=== PATIENT | male | born 1990 | race Caucasian/White ===

== ENCOUNTER 2022-03-09 16:22 | Emergency (ER) | payer SELFPAY ==
--- NOTE | 2022-03-09 16:15 | RT.EKG_ITS ---
APPROVED REPORT Exam: Resting ECG Reason for Exam: Chest pain Patient Location: E HR:59 bpm ECG Measurements Heart Rate 59 AXIS NV 133 P 45 QRSd 99 QRS 20 QT 392 T 43 QTc 387 Conclusion Sinus bradycardia...rate< 60 ST elev, probable normal early repol pattern...ST elevation, age<55. Sinus. Normal axis. Peaked T waves. Benign early repolarization. No STEMI. I have reviewed and interpreted ECG and agree with software generated interpretation.
[2022-03-09 16:27] VITALS: BP 137/67; PULSE 65; RESP 14; TEMP 36.8; O2SAT 97
--- NOTE | 2022-03-09 17:45 | DI.RAD_ITS ---
Exam(s) XR PORTABLE CHEST AP EXAM: XR PORTABLE CHEST AP CLINICAL HISTORY: chest pain TECHNIQUE: COMPARISON: No exams were available for comparison FINDINGS: PA view of the chest was obtained. Heart is not enlarged. Lungs are clear and well expanded. No pl eural effusion seen on this frontal film. IMPRESSION: Negative examination of the chest. RADIATION DOSE DELIVERED: Total DLP
[2022-03-09] MEDS: Ibuprofen 600 MG TAB PO (18:16)
[2022-03-09 18:21] LABS: ESR 8 mm/hr (0-15)
[2022-03-09 18:23] LABS: Abs Immature Grans 0.01 10^3/uL (0.0-0.06); Absolute Basophil Count 0.03 10^3/uL (0.0-0.2); Absolute Eosinophil Count 0.09 10^3/uL (0.0-0.7); Absolute Lymphocyte Count 1.58 10^3/uL (1.2-3.4); Absolute Monocyte Count 0.85 10^3/uL (0.1-0.8); Absolute Neutrophil Count 4.08 10^3/uL (1.2-6.7); Basophils % 0.5; Eosinophils % 1.4; HCT 44.3 % (40.0-50.0); HGB 14.6 g/dL (13.5-17.5); Immature Grans % 0.2; Lymphocytes % 23.8; MCH 27.8 pg (27.0-33.0); MCV 84 fL (80-95); MPV 12.9 fL (8.0-11.0); Monocytes % 12.8; Neutrophils % 61.3; Platelet Count 170 10^3/uL (130-400); RBC 5.25 10^6/uL (4.36-5.78); RDW 12.6 % (11.8-14.1); RDW-SD 38.8 fL; WBC 6.64 10^3/uL (4.4-10.8)
[2022-03-09 18:25] LABS: ALT 16 U/L (16-63); AST 19 U/L (15-37); Albumin 4.2 g/dL (3.4-5.0); Alkaline Phosphatase 83 U/L (46-116); Anion Gap 6.5 mmol/L (3-11); BUN 13 mg/dL (7-18); Bilirubin, Total 0.3 mg/dL (0.2-1.0); CO2 29.5 mmol/L (21.0-32.0); Chloride 104 mmol/L (98-107); Estimated GFR 103.84 (mL/min/1.73m2); Glucose 94 mg/dL (74-106); Lipase 93 U/L (73-393); Potassium 4.7 mmol/L (3.5-5.1); Sodium 140 mmol/L (136-145); Total Protein 8.4 g/dL (6.4-8.2)
--- NOTE | 2022-03-09 18:59 | DI.VRAD_ITS ---
PROCEDURE INFORMATION: Exam: XR Chest Exam date and time: 03/09/2022 6:36 PM Age: 31 years old Clinical indication: Pain; Chest pressure; Additional info: Chest pain TECHNIQUE: Imaging protocol: Radiologic exam of the chest. Views: 1 view. COMPARISON: No relevant prior studies available. FINDINGS: Lungs: Unremarkable. No consolidation. Pleural spaces: Unremarkable. No pleural effusion. No pneumothorax. Heart/Mediastinum: Unremarkable. No cardiomegaly. Bones/joints: Unremarkable. IMPRESSION: No acute findings. Dictated and Authenticated by: Francisco Funes MD. Ordering:FERCHO Valenzuela MD
--- NOTE | 2022-03-09 19:31 | ED.GENADUL_ITS ---
Discharge Plan Disposition Patient Disposition: HOME Condition: Stable Discharge Details Clinical Impression: Chest pain Primary Care Provider: AllisonLocal ED Provider: Bianca Guo Home Meds and New Rx's Prescriptions: New cyclobenzaprine 10 mg tablet 10 mg PO TID Qty: 10 0RF Discharge Instructions Instructions: Chest Pain (ED), Pleurisy (DC) Additional Instructions: take motrin/tylenol as needed for pain flexeril with pain uncontrolled with motrin/tylenol rest recheck in 24-48 hours with persistent pain take ibuprofen every 8 hours for the next 5 days Stand Alone Forms: Work Release Discharge Data Discharge Date/Time-TO BE ENTERED AT DEPARTURE: 03/09/22 19:45 Medical Decision Making Patient appears well He is PERC negative He has a negative troponin with greater than 24 hours of symptoms and other patient negative EKG for acute abnormality and reproducible chest pain without abnormality on chest x-ray Patient is stable for discharge home at this time, I suspect he has pleurisy and this is atypical chest pain My suspicion for coronary artery disease is low given age and lack of comorbidities Will need close outpatient recheck Return precautions discussed and patient expressed understanding Medical Records Medical records reviewed: Yes I reviewed the patient's medical records. Lab Data Lab results reviewed: Yes I reviewed the patient's lab results. HPI General Date/Time Provider Initiated Documentation: 03/09/22 16:31 . HPI Narrative: This 31-year-old male presents for chest pain that started yesterday at work. He states the pain is exacerbated with movement and position change. He denies any fever or chills. He denies any myalgias. He denies any calf pain or swelling. He denies history of coagulopathy or pulmonary. He denies history of similar symptoms in the past. He denies any tobacco abuse or early family history of coronary artery disease. Denies history of cocaine or illicit drug use. Related Data Home Medications Medication Instructions Recorded Confirmed cyclobenzaprine 10 mg tablet 10 mg PO TID #10 tabs 03/09/22 Previous Rx's Medication Instructions Recorded cyclobenzaprine 10 mg tablet 10 mg PO TID #10 tabs 03/09/22 Allergies Allergy/AdvReac Type Severity Reaction Status Date / Time No Known Allergies Allergy Unverified 03/09/22 16:31 General Stated Complaint: Chest Pain ALYSA: 3 Review of Systems All systems reviewed & are unremarkable except as noted in HPI and below PFSH All Active Problems (Updated 03/09/22 @ 19:39 by MARIELENA Randolph) Chest pain (Acute) Social History Smoking/Tobacco Use Status: Current every day Tobacco Type: cigarettes Smoking risk assessment performed?: Yes Alcohol Intake: never Drug use: Socially Substance use type: marijuana Do you feel safe at home: Yes Do you feel safe in your relationship?: Yes Exam Const General: cooperative, comfortable and no acute distress Orientation: alert and oriented x3 Eyes Sclera: sclerae normal Chest Other: Reproducible tenderness to chest Resp Effort & Inspection: normal respiratory effort Auscultation: clear to auscultation bilaterally Cardio Rate: regular rate Rhythm: regular rhythm Skin General skin exam: no rashes or lesions noted Neuro General: patient alert and patient oriented x3 Extrem Other: distal pulses intact No calf swelling or tenderness Course Vital Signs Vital signs: Vital Signs Temperature 36.8 C 03/09/22 16:27 Pulse 65 03/09/22 16:27 Respiratory Rate 14 03/09/22 16:27 Blood Pressure 137/67 03/09/22 16:27 Pulse Oximetry 97 03/09/22 16:27 Temperature 36.8 C 03/09/22 16:27 Temperature Source Skin 03/09/22 16:27 Pulse 65 03/09/22 16:27 Respiratory Rate 14 03/09/22 16:27 Respiratory Effort 03/09/22 16:32 Blood Pressure 137/67 03/09/22 16:27 Blood Pressure Position Sitting 03/09/22 16:27 Pulse Oximetry 97 03/09/22 16:27 Oxygen Delivery Method Room Air 03/09/22 16:27 Oxygen Flow Rate 0 03/09/22 16:27 Pain Level 8 03/09/22 16:27 Lab/Test Results Lab/Test Results: Laboratory Tests Range/Units 03/09/22 03/09/22 03/09/22 18:03 18:03 18:03 WBC (4.4-10.8) 10^3/uL 6.64 RBC (4.36-5.78) 10^6/uL 5.25 Hgb (13.5-17.5) g/dL 14.6 Hct (40.0-50.0) % 44.3 MCV (80-95) fL 84 MCH (27.0-33.0) pg 27.8 MCHC (32.0-36.0) % 33.0 RDW (11.8-14.1) % 12.6 Plt Count (130-400) 10^3/uL 170 MPV (8.0-11.0) fL 12.9 H Immature Gran % 0.2 Neutrophils % 61.3 Lymphocytes % 23.8 Monocytes % 12.8 Eosinophils % 1.4 Basophils % 0.5 Nucleated RBC % (0.0-0.3) % 0.0 Absolute Neutrophils (1.2-6.7) 10^3/uL 4.08 Absolute Lymphocytes (1.2-3.4) 10^3/uL 1.58 Absolute Monocytes (0.1-0.8) 10^3/uL 0.85 H Absolute Eosinophils (0.0-0.7) 10^3/uL 0.09 Absolute Basophils (0.0-0.2) 10^3/uL 0.03 ESR (0-15) mm/hr 8 Sodium (136-145) mmol/L 140 Potassium (3.5-5.1) mmol/L 4.7 Chloride (98-107) mmol/L 104 Carbon Dioxide (21.0-32.0) mmol/L 29.5 Anion Gap (3-11) mmol/L 6.5 BUN (7-18) mg/dL 13 Creatinine (0.70-1.30) mg/dL 1.0 Est GFR (CKD-EPI 2020) (mL/min/1.73m2) 103.84 Glucose (74-106) mg/dL 94 Calcium (8.5-10.1) mg/dL 9.0 Total Bilirubin (0.2-1.0) mg/dL 0.3 AST (15-37) U/L 19 ALT (16-63) U/L 16 Alkaline Phosphatase (46-116) U/L 83 Total Protein (6.4-8.2) g/dL 8.4 H Albumin (3.4-5.0) g/dL 4.2 Lipase (73-393) U/L 93
== END 2022-03-09 19:45 | disposition home or self-care (01) ==
PROVIDERS: Emergency Provider Physician Assistant
DX: R07.89 Other chest pain (principal); F17.210 Nicotine dependence, cigarettes, uncomplicated
CPT/HCPCS: 36415; 80053; 83690; 85652; 93005; 99283; 71045; 85025; 93010; 99284

== ENCOUNTER 2022-06-15 08:34 | Emergency (ER) | payer SELFPAY ==
[2022-06-15 08:40] VITALS: BP 110/73; PULSE 78; RESP 14; TEMP 37.3; O2SAT 97
--- NOTE | 2022-06-15 10:28 | ED.GENADUL_ITS ---
Discharge Plan Disposition Patient Disposition: Home Condition: Stable Discharge Details Chief Complaint: Nk/Back Pain Clinical Impression: Back pain Primary Care Provider: Allison,Local ED Provider: Colby cD Home Meds and New Rx's Prescriptions: No Action No Known Home Meds Discharge Instructions Instructions: Back Pain (ED) Additional Instructions: A single dose of IM Toradol provided here in the ER. Rest, gentle stretching as tolerated. Cool and/or warm compresses every 2 hours for 20 minutes. Svor-cuq-oavuvnd medications as directed for symptomatic control. Please watch for new or worsening symptoms and return to the ER for any concerns. Work note provided for today and tomorrow. Stand Alone Forms: Work Release Medical Decision Making This is a 32-year-old male who denies significant past medical history reports left lower back pain that began yesterday while mopping at work. Denies any history of IV drug use. Denies fever, midline point tenderness, incontinence. Clinically he appears well, nontoxic. Neuro, vascular, tendon intact. This appears to be musculoskeletal in nature. X-ray likely little value. Plan to provide IM Toradol and a work note for today and tomorrow. Standard discharge and return precautions were provided. Patient understands, is agreeable to this plan, and has no additional questions or concerns upon discharge. This documentation was generated using [email or web address] dictation system, please disregard any oddities of phrase or misspellings. Medical Records Medical records reviewed: Yes I reviewed the patient's medical records. Sign Out No HPI General Mode of arrival: ambulatory . Date/Time Provider Initiated Documentation: 06/15/22 08:48 . Limitations to Documentation: no limitations . Information obtained by: patient . History of Present Illness 32 year old M presents to the emergency department with the chief complaint of L back pain, described as moderate, with intensity rated at 7. Quality is described as aching, and is localized to the back and left. Patient reports no radiation. Patient started experiencing this day(s) (1) and it has been constant. Immobilization improves symptom(s), Movement worsens symptoms . Patient notes no other symptoms.. Patient did receive the following treatments prior to arrival, other (tylenol) Related Data Home Medications Medication Instructions Recorded Confirmed Unknown [No Known Home Meds] 06/15/22 06/15/22 Allergies Allergy/AdvReac Type Severity Reaction Status Date / Time No Known Allergies Allergy Unverified 06/15/22 08:44 General Stated Complaint: Nk/Back Pain ALYSA: 4 Review of Systems Constitutional Constitutional: Denies fever(s) and Denies weakness Cardiovascular Cardiovascular: Denies chest pain and Denies dyspnea Respiratory Respiratory: Denies cough and Denies dyspnea Gastrointestinal Gastrointestinal: Denies abdominal pain, Denies nausea and Denies vomiting Genitourinary Genitourinary: Denies dysuria Musculoskeletal Musculoskeletal: Reports back pain, Denies numbness and Denies tingling Integumentary/Breasts Skin/Breast: Denies rash Neurologic Neurologic: Denies numbness, Denies tingling and Denies weakness PFSH All Active Problems (Updated 06/15/22 @ 10:34 by MARIELENA Mei) Back pain (Acute) Social History Smoking/Tobacco Use Status: Current every day Tobacco Type: cigarettes Smoking risk assessment performed?: Yes Alcohol Intake: never Drug use: Socially Substance use type: marijuana Do you feel safe at home: Yes Do you feel safe in your relationship?: Yes Exam Const General: cooperative, healthy appearing, comfortable and no acute distress Orientation: alert and awake HENMT Head: normal to inspection, normocephalic and atraumatic Eyes Conjunctivae: conjunctivae normal Neck Neck: normal visual inspection, full ROM, no meningeal signs, trachea midline and supple Resp Effort & Inspection: normal respiratory effort and able to speak in complete sentences Auscultation: clear to auscultation bilaterally Cardio Rate: regular rate Rhythm: regular rhythm GI Palpation: soft, not firm, no guarding and nontender Back/Spine/Pelvis Back: no CVA tenderness and back tenderness (Diffuse left lumbar, no midline point tenderness) Skin General skin exam: no rashes or lesions noted Neuro General: patient alert, patient awake, moves all extremities and no focal motor deficits Cognition: normal cognition Speech: speech normal Gait: normal gait Motor: muscle tone normal throughout Sensory Exam: no sensory deficits noted Psych Appearance: grossly normal Mental Status: mental status grossly normal Course Vital Signs Vital signs: Vital Signs Temperature 37.3 C 06/15/22 08:40 Pulse 78 06/15/22 08:40 Respiratory Rate 14 06/15/22 08:40 Blood Pressure 110/73 06/15/22 08:40 Pulse Oximetry 97 06/15/22 08:40 Temperature 37.3 C 06/15/22 08:40 Temperature Source Oral 06/15/22 08:40 Pulse 78 06/15/22 08:40 Respiratory Rate 14 06/15/22 08:40 Blood Pressure 110/73 06/15/22 08:40 Blood Pressure Position Sitting 06/15/22 08:40 Pulse Oximetry 97 06/15/22 08:40 Oxygen Delivery Method Room Air 06/15/22 08:40 Oxygen Flow Rate 0 06/15/22 08:40 Pain Level 8 06/15/22 08:40
[2022-06-15] MEDS: Ketorolac 60 MG/2 ML VIAL IM (10:41)
== END 2022-06-15 10:47 | disposition home or self-care (01) ==
PROVIDERS: Emergency Provider Physician Assistant
DX: M54.50 Low back pain, unspecified (principal); X50.1XXA Overexertion from prolonged static or awkward postures, initial encounter; Y99.0 Civilian activity done for income or pay
CPT/HCPCS: 96372; 99284; 99283; J1885

== ENCOUNTER 2022-06-19 08:24 | Emergency (ER) | payer SELFPAY ==
[2022-06-19 08:26] VITALS: BP 109/75; PULSE 97; RESP 16; TEMP 36.3; O2SAT 99
[2022-06-19 08:31] VITALS: RESP 18
[2022-06-19 09:22] LABS: COVID-19 PCR Negative (Negative); Influenza A PCR Positive (Negative); Influenza B PCR Negative (Negative); RSV PCR Negative (Negative)
--- NOTE | 2022-06-19 09:25 | ED.GENADUL_ITS ---
Discharge Plan Disposition Patient Disposition: Home Condition: Stable Discharge Details Clinical Impression: Influenza A Primary Care Provider: AllisonLocal ED Provider: Lilliam Bernal Home Meds and New Rx's Prescriptions: No Action No Known Home Meds Discharge Instructions Instructions: H1N1 Influenza (ED) Additional Instructions: Your testing was positive for the flu. Encourage hydration. Tylenol and ibuprofen as needed for discomfort. Please continue to quarantine as you are contagious. If you develop shortness of breath, inability stay hydrated or other new/worsening symptom please seek care urgently once again. Our care management team will help arrange for local primary care provide. Please follow up with them in 2 weeks for reevaluation. r Stand Alone Forms: Work Release Discharge Data Discharge Date/Time-TO BE ENTERED AT DEPARTURE: 06/19/22 09:43 Medical Decision Making Patient is a pleasant 32-year-old gentleman presenting today with chief complaint of body aches, fever, congestion, mild cough. States he has began about 3 days ago. Endorses some chills. Has had a diminished appetite but has been staying well-hydrated. States he has had some loose stools, all of which have been nonbloody. No vomiting. Patient is not vaccinated against flu or COVID. Works at a high school. On exam, patient appears nontoxic. Hemodynamically stable. Moist mucous membranes, drinking Gatorade. Lungs are clear, normal ENT exam. Based on the rapid onset of symptoms, primarily concern for flu. Will treat body aches with Tylenol and ibuprofen. Patient includes a positive. He is out of the window for treatment, nor does he have any chronic respiratory illnesses or other comorbidities. Discussed findings with the patient. Encouraged to quarantine. Encourage hydration, Tylenol/ibuprofen to help with symptomatic management. Return precautions were discussed. Have asked her care management to ensure that he is able to have follow-up with primary care. We will give work note. All his questions and concerns were addressed and he is in agreement this plan. Sign Out No HPI General Date/Time Provider Initiated Documentation: 06/19/22 08:26 . Limitations to Documentation: no limitations . Information obtained by: patient and RN notes reviewed . History of Present Il lness 32 year old M presents to the emergency department with the chief complaint of cough, congestion, fever, body aches, described as moderate, Quality is described as aching (generalized body aches), Patient started experiencing this day(s) (3) and it has been constant. No relieving factors improve symptom(s), No exacerbating factors reported . Patient notes cough, fever/chills and malaise; denies chest pain, diaphoresis, headaches, nausea/vomiting, rash and shortness of breath. Patient did receive the following treatments prior to arrival, none Related Data Home Medications Medication Instructions Recorded Confirmed Unknown [No Known Home Meds] 06/15/22 06/19/22 Allergies Allergy/AdvReac Type Severity Reaction Status Date / Time No Known Allergies Allergy Unverified 06/19/22 08:30 General Stated Complaint: GenMedical ALYSA: 4 Review of Systems Constitutional Constitutional: Reports as per HPI and Denies headache(s) Eyes Eyes: Reports as per HPI, Denies eye discharge and Denies irritation ENT Ears, Nose, Mouth, and Throat: Reports as per HPI and Denies headache(s) Cardiovascular Cardiovascular: Reports as per HPI, Denies chest pain and Denies dyspnea Respiratory Respiratory: Reports as per HPI and Denies dyspnea Gastrointestinal Gastrointestinal: Reports as per HPI, Denies abdominal pain, Denies change in bowel habits, Denies nausea and Denies vomiting Integumentary/Breasts Skin/Breast: Reports as per HPI and Denies rash Neurologic Neurologic: Reports as per HPI and Denies headache(s) PFSH All Active Problems (Updated 06/19/22 @ 09:38 by MARIELENA Ayon) Back pain (Acute) Influenza A (Acute) Social History Smoking/Tobacco Use Status: Current every day Tobacco Type: cigarettes Smoking risk assessment performed?: Yes Alcohol Intake: never Drug use: Daily Substance use type: marijuana Do you feel safe at home: Yes Do you feel safe in your relationship?: Yes Exam Const General: cooperative, healthy appearing, comfortable, no acute distress, well developed and well groomed Nutritional Appearance: average body habitus and well nourished Orientation: alert and awake [facility] Head: normal to inspection, normocephalic and atraumatic Ears: hearing grossly normal bilaterally, external ears normal and TM's normal bilaterally General nose exam: external nose normal and nares normal Face and sinus: normal facial exam, sinuses nontender and face symmetric Mouth: oral mucosae normal, lip normal, tongue normal, oropharynx normal and moist mucous membranes Teeth and gingiva: dentition normal Throat: posterior oropharynx normal, tonsils normal and uvula midline Eyes General: appearance normal, both eyes and all related structures Neck Neck: normal visual inspection, full ROM, no lymphadenopathy and no meningeal signs Resp Effort & Inspection: normal respiratory effort, able to speak in complete sentences and no respiratory distress Auscultation: clear to auscultation bilaterally, no rales, no rhonchi and no wheezes Cardio Rate: regular rate Rhythm: regular rhythm Heart Sounds: S1 normal and S2 normal Skin General skin exam: no rashes or lesions noted Neuro General: patient alert and patient awake Cognition: normal cognition Speech: speech normal Gait: normal gait Psych Appearance: grossly normal and well kempt Mental Status: mental status grossly normal Speech and Movement: speech and movement normal Course Vital Signs Vital signs: Vital Signs Temperature 36.3 C L 06/19/22 08:26 Pulse 97 H 06/19/22 08:26 Respiratory Rate 16 06/19/22 08:26 Blood Pressure 109/75 06/19/22 08:26 Pulse Oximetry 99 06/19/22 08:26 Temperature 36.3 C L 06/19/22 08:26 Pulse 97 H 06/19/22 08:26 Respiratory Rate 18 06/19/22 08:31 Respiratory Effort 06/19/22 08:31 Respiratory Depth Normal 06/19/22 08:31 Respiratory Pattern Normal 06/19/22 08:31 Blood Pressure 109/75 06/19/22 08:26 Blood Pressure Position Sitting 06/19/22 08:26 Pulse Oximetry 99 06/19/22 08:26 Oxygen Delivery Method Room Air 06/19/22 08:26 Oxygen Flow Rate 0 06/19/22 08:26 Pain Level 0 06/19/22 08:26
[2022-06-19 09:28] LABS: Source Nasopharynx
[2022-06-19] MEDS: Ibuprofen 600 MG TAB PO (09:29)
[2022-06-19] MEDS: Acetaminophen 325 MG TAB 650 MG PO (09:29)
--- NOTE | 2022-06-19 15:55 | NUR.NOTE ---
Nursing Note: TO CM FOR PCP ESTABLISH
== END 2022-06-19 09:43 | disposition home or self-care (01) ==
PROVIDERS: Emergency Provider Physician Assistant
DX: J10.1 Influenza due to other identified influenza virus with other respiratory manifestations (principal); F17.210 Nicotine dependence, cigarettes, uncomplicated
CPT/HCPCS: 87637; 99282